=== PATIENT | female | born 1985 | race Caucasian/White ===

== ENCOUNTER 2021-06-10 06:20 | Day surgery (SDC) | payer OTHER ==
[~2021-06-10] VITALS: Ht 165.1 cm; Wt 72.6 kg
[2021-06-10] MEDS ORDERED: L-METHYLFOLATE15 MG PO (06:46)
[2021-06-10] MEDS ORDERED: PROZAC40 MG PO (06:46)
[2021-06-10] MEDS ORDERED: HCTZ 25MG TAB25 MG PO (06:46)
[2021-06-10] MEDS ORDERED: REQUIP 1MG T1 MG/TAB PO (06:47)
[2021-06-10 07:00] VITALS: BP 119/64; PULSE 60; TEMP 97.7
[2021-06-10 10:09] VITALS: BP 120/65; PULSE 73; TEMP 97.9
--- NOTE | 2021-06-10 10:09 | NUR ---
Patient arrived back into [facility]. Report recieved from ARMIN Leong. Patient doing well. Requesting water and leelee crackers.
[2021-06-10 10:24] VITALS: BP 129/66; PULSE 77
--- NOTE | 2021-06-10 10:30 | NUR ---
Patient reporting pain around operative area rating 5-6/10. PRN pain medications given per MAR.
[2021-06-10 10:39] VITALS: BP 119/61; PULSE 81
--- NOTE | 2021-06-10 10:39 | NUR ---
Dr. Zhong in to see patient, questions answered. Went through discharge instructions with patient, questions answered. Patient verbalized understanding to education.
--- NOTE | 2021-06-10 10:40 | NUR ---
Patient doing well. Pain is controlled. Ate and drank with no complaint of nausea or vomiting. IV removed with no complications. Patient went to restroom and got dressed independently.
--- NOTE | 2021-06-10 10:51 | NUR ---
Patient escorted to emergency entrance via wheelchair. Patient's friend, Judy, waiting at entrance. Patient got into personal vehicle independently and left in the care of her friend.
== END 2021-06-10 10:52 | disposition home or self-care (01) ==
LOC: SDCO 06:20
DX: N20.0 Calculus of kidney (principal); K21.9 Gastro-esophageal reflux disease without esophagitis; F32.A Depression, unspecified; F41.9 Anxiety disorder, unspecified; Z79.899 Other long term (current) drug therapy; Z90.710 Acquired absence of both cervix and uterus
CPT/HCPCS: C1769; C1894; C2617; J0690; J1100; J1170; J1885; J2405; J2550; J2704; J3010; J7120; Q9967